=== PATIENT | female | born 1950 | race Two or more races ===

== ENCOUNTER 2020-12-12 09:43 | Inpatient (IN) | payer OTHER ==
[2020-12-12] MEDS ORDERED: KETOROLAC TROMETHAMINE 15 MG/ML VIAL IVPUSH ONE (11:01)
[2020-12-12] MEDS ORDERED: KETOROLAC TROMETHAMINE 15 MG/ML VIAL ONE (11:14)
[2020-12-12 12:48] LABS: BASO % 0.6 % (0-2.0); EOS % 1.1 % (0-4.5); HEMATOCRIT 38.2 % (32.4-45.2); HEMOGLOBIN 12.9 GM/dL (10.7-15.3); LYMPH % 16.6 % (8-40); MCH 27.3 pg (25.7-33.7); MCHC 33.8 g/dl (32.0-36.0); MEAN CELL VOLUME 80.8 fl (80-96); MEAN PLT VOLUME 8.5 fl (7.5-11.1); MONO % 5.8 % (3.8-10.2); NEUT % 75.9 % (42.8-82.8); PLATELET COUNT 255 10^3/uL (134-434); RBC 4.72 M/mm3 (3.60-5.2); RDW 14.7 % (11.6-15.6); WHITE BLOOD COUNT 9.6 K/mm3 (4.0-10.0)
[2020-12-12 12:56] LABS: INR 0.95 (0.83-1.09); PROTHROMBIN TIME (PATIENT) 11.5 SEC (9.7-13.0)
[2020-12-12 12:58] LABS: ACTIVATED PTT 31.2 SECONDS (25.2-36.5)
[2020-12-12 13:14] LABS: CALCIUM 9.7 mg/dL (8.5-10.1)
[2020-12-12 13:15] LABS: ALBUMIN 3.9 g/dl (3.4-5.0)
[2020-12-12 13:18] LABS: CREATININE 1.3 mg/dL (0.55-1.3)
[2020-12-12 13:19] LABS: BILIRUBIN,TOTAL 0.4 mg/dL (0.2-1)
[2020-12-12 13:20] LABS: TOT PROT 7.8 g/dl (6.4-8.2)
[2020-12-12] MEDS ORDERED: SODIUM CHLORIDE 0.9% 500 ML INFUS.BAG IV ONE (13:28)
[2020-12-12] MEDS ORDERED: traMADol HCL 50 MG TABLET PO ONE (15:49)
[2020-12-12] MEDS ORDERED: traMADol HCL 50 MG TABLET ONE (16:24)
[2020-12-12] MEDS ORDERED: IBUPROFEN 400 MG TABLET (FP) PO PRN (16:52)
[2020-12-12] MEDS ORDERED: MORPHINE SULFATE 2 MG/ML VIAL IVPUSH PRN (16:52)
[2020-12-12] MEDS ORDERED: LIDOCAINE 5% TOPICAL PATCH ONE (17:27)
[2020-12-12] MEDS: CYCLOBENZAPRINE HCL 5 MG TABLET PO SCH (17:38)
[2020-12-12] MEDS: LIDOCAINE 5% TOPICAL PATCH TP SCH (17:39)
[2020-12-12] MEDS ORDERED: ROSUVASTATIN CA 40 MG TABLET PO SCH (22:00)
[2020-12-12] MEDS: traMADol HCL 50 MG TABLET PO PRN (23:18)
[2020-12-12] MEDS: ROSUVASTATIN CA 20 MG TABLET (FP) PO SCH (23:18)
[2020-12-12] MEDS: LIDOCAINE PATCH REMOVAL MC SCH (23:18)
[2020-12-12] MEDS: INSULIN SLIDING SCALE (NOVOLOG) 1 VIAL SQ SCH (23:23)
[2020-12-13 01:56] VITALS: BMI 30.2
[2020-12-13] MEDS: INSULIN SLIDING SCALE (NOVOLOG) 1 VIAL SQ SCH ×4 (06:05→21:40)
[2020-12-13 07:49] LABS: HEMATOCRIT 35.9 % (32.4-45.2); MCH 27.1 pg (25.7-33.7); MCHC 33.4 g/dl (32.0-36.0); MEAN CELL VOLUME 81.2 fl (80-96); MEAN PLT VOLUME 8.7 fl (7.5-11.1); PLATELET COUNT 274 10^3/uL (134-434); RBC 4.41 M/mm3 (3.60-5.2); RDW 14.7 % (11.6-15.6); WHITE BLOOD COUNT 7.8 K/mm3 (4.0-10.0)
[2020-12-13 08:22] LABS: ALBUMIN 3.2 g/dl (3.4-5.0); CALCIUM 9.5 mg/dL (8.5-10.1)
[2020-12-13 08:23] LABS: BLOOD UREA NITROGEN 26.7 mg/dL (7-18)
[2020-12-13 08:26] LABS: CREATININE 1.5 mg/dL (0.55-1.3); PHOSPHOROUS 3.6 mg/dL (2.5-4.9)
[2020-12-13 08:27] LABS: BILIRUBIN,TOTAL 0.3 mg/dL (0.2-1); TOT PROT 6.8 g/dl (6.4-8.2)
[2020-12-13] MEDS ORDERED: PT OWN MED DRAWER 7, Y5N ONE (09:25)
[2020-12-13] MEDS: LIDOCAINE 5% TOPICAL PATCH TP SCH (09:38)
[2020-12-13] MEDS: DOCUSATE SODIUM 100 MG CAPSULE (FP) PO SCH (09:38)
[2020-12-13] MEDS: ASPIRIN 81 MG CHEWABLE TABLETS PO SCH (09:38)
[2020-12-13] MEDS: traMADol HCL 50 MG TABLET PO PRN ×2 (09:38→23:00)
[2020-12-13] MEDS: CYCLOBENZAPRINE HCL 5 MG TABLET PO SCH (09:39)
[2020-12-13] MEDS ORDERED: ENOXAPARIN NA (PORCINE) 40 MG/0.4 ML DISP.SYRIN SQ SCH (10:00)
[2020-12-13] MEDS ORDERED: LOSARTAN POTASSIUM 50 MG TABLET PO SCH (10:00)
[2020-12-13] MEDS: VERAPAMIL HCL 180 MG E.R. TABLET PO SCH (10:39)
[2020-12-13] MEDS ORDERED: SODIUM CHLORIDE 1,000 ML IV SCH (14:15)
[2020-12-13] MEDS: ACETAMINOPHEN 325 MG TABLET (FP) PO PRN (16:24)
[2020-12-13] MEDS: LIDOCAINE PATCH REMOVAL MC SCH (21:36)
[2020-12-13] MEDS: ROSUVASTATIN CA 20 MG TABLET (FP) PO SCH (21:36)
[2020-12-14] MEDS: traMADol HCL 50 MG TABLET PO PRN (05:55)
[2020-12-14] MEDS: INSULIN SLIDING SCALE (NOVOLOG) 1 VIAL SQ SCH ×4 (06:16→22:19)
[2020-12-14] MEDS: ACETAMINOPHEN 325 MG TABLET (FP) PO PRN ×2 (09:04→18:35)
[2020-12-14 09:07] LABS: HEMATOCRIT 35.3 % (32.4-45.2); HEMOGLOBIN 11.8 GM/dL (10.7-15.3); MCH 27.5 pg (25.7-33.7); MCHC 33.5 g/dl (32.0-36.0); MEAN PLT VOLUME 8.3 fl (7.5-11.1); PLATELET COUNT 240 10^3/uL (134-434); RBC 4.31 M/mm3 (3.60-5.2); RDW 14.6 % (11.6-15.6); WHITE BLOOD COUNT 7.6 K/mm3 (4.0-10.0)
[2020-12-14 09:24] LABS: BLOOD UREA NITROGEN 24.5 mg/dL (7-18); CALCIUM 9.1 mg/dL (8.5-10.1)
[2020-12-14 09:25] LABS: MAGNESIUM 2.1 mg/dL (1.8-2.4)
[2020-12-14 09:28] LABS: CREATININE 1.5 mg/dL (0.55-1.3); PHOSPHOROUS 3.2 mg/dL (2.5-4.9)
[2020-12-14 09:29] LABS: BILIRUBIN,TOTAL 0.3 mg/dL (0.2-1); TOT PROT 6.3 g/dl (6.4-8.2)
[2020-12-14] MEDS: amLODIPine BESYLATE 5 MG TABLET (FP) PO SCH (09:46)
[2020-12-14] MEDS ORDERED: PT OWN MED DRAWER 7, Y5N ONE (09:46)
[2020-12-14] MEDS: LIDOCAINE 5% TOPICAL PATCH TP SCH (09:47)
[2020-12-14] MEDS: VERAPAMIL HCL 180 MG E.R. TABLET PO SCH (09:47)
[2020-12-14] MEDS: DOCUSATE SODIUM 100 MG CAPSULE (FP) PO SCH (09:47)
[2020-12-14] MEDS: CYCLOBENZAPRINE HCL 5 MG TABLET PO SCH (09:47)
[2020-12-14] MEDS: ASPIRIN 81 MG CHEWABLE TABLETS PO SCH (09:47)
[2020-12-14] MEDS ORDERED: oxyCODONE HCL 5 MG TABLET PO ONE ×2 (10:07→19:22)
[2020-12-14 18:19] LABS: CREATININE 1.4 mg/dL (0.55-1.3)
[2020-12-14] MEDS: ROSUVASTATIN CA 20 MG TABLET (FP) PO SCH (22:19)
[2020-12-14] MEDS: LIDOCAINE PATCH REMOVAL MC SCH (22:20)
[2020-12-14] MEDS: oxyCODONE HCL 5 MG TABLET PO PRN (22:25)
[2020-12-15] MEDS: ACETAMINOPHEN 325 MG TABLET (FP) PO PRN (04:11)
[2020-12-15] MEDS: INSULIN SLIDING SCALE (NOVOLOG) 1 VIAL SQ SCH ×4 (06:40→21:26)
[2020-12-15 09:46] LABS: HEMOGLOBIN 12.1 GM/dL (10.7-15.3); MCHC 32.7 g/dl (32.0-36.0); MEAN CELL VOLUME 82.5 fl (80-96); MEAN PLT VOLUME 8.8 fl (7.5-11.1); PLATELET COUNT 264 10^3/uL (134-434); RBC 4.48 M/mm3 (3.60-5.2); RDW 14.6 % (11.6-15.6); WHITE BLOOD COUNT 8.5 K/mm3 (4.0-10.0)
[2020-12-15 10:14] LABS: ALBUMIN 3.2 g/dl (3.4-5.0); BLOOD UREA NITROGEN 30.8 mg/dL (7-18); CALCIUM 9.4 mg/dL (8.5-10.1)
[2020-12-15 10:15] LABS: MAGNESIUM 2.2 mg/dL (1.8-2.4)
[2020-12-15 10:17] LABS: CREATININE 1.5 mg/dL (0.55-1.3)
[2020-12-15 10:18] LABS: PHOSPHOROUS 3.4 mg/dL (2.5-4.9)
[2020-12-15 10:19] LABS: BILIRUBIN,TOTAL 0.3 mg/dL (0.2-1); TOT PROT 6.5 g/dl (6.4-8.2)
[2020-12-15] MEDS: CYCLOBENZAPRINE HCL 5 MG TABLET PO SCH (10:28)
[2020-12-15] MEDS: LIDOCAINE 5% TOPICAL PATCH TP SCH (10:28)
[2020-12-15] MEDS: amLODIPine BESYLATE 5 MG TABLET (FP) PO SCH (10:28)
[2020-12-15] MEDS: DOCUSATE SODIUM 100 MG CAPSULE (FP) PO SCH (10:28)
[2020-12-15] MEDS: ASPIRIN 81 MG CHEWABLE TABLETS PO SCH (10:29)
[2020-12-15] MEDS ORDERED: PT OWN MED DRAWER 7, Y5N ONE (10:39)
[2020-12-15] MEDS: oxyCODONE HCL 5 MG TABLET PO PRN ×2 (10:41→22:50)
[2020-12-15] MEDS: VERAPAMIL HCL 180 MG E.R. TABLET PO SCH (10:42)
[2020-12-15] MEDS ORDERED: SODIUM CHLORIDE 0.45% 1,000 ML IV SCH (17:30)
[2020-12-15] MEDS: ROSUVASTATIN CA 20 MG TABLET (FP) PO SCH (21:25)
[2020-12-15] MEDS: LIDOCAINE PATCH REMOVAL MC SCH (21:25)
[2020-12-16] MEDS: INSULIN SLIDING SCALE (NOVOLOG) 1 VIAL SQ SCH ×4 (06:14→21:14)
[2020-12-16 09:54] LABS: CALCIUM 8.9 mg/dL (8.5-10.1)
[2020-12-16 09:55] LABS: ALBUMIN 3.2 g/dl (3.4-5.0); BLOOD UREA NITROGEN 27.2 mg/dL (7-18)
[2020-12-16 09:58] LABS: CREATININE 1.5 mg/dL (0.55-1.3)
[2020-12-16 09:59] LABS: BILIRUBIN,TOTAL 0.3 mg/dL (0.2-1); TOT PROT 6.6 g/dl (6.4-8.2)
[2020-12-16] MEDS ORDERED: SENNOSIDES 8.6MG TABLET (FP) PO SCH (10:00)
[2020-12-16] MEDS ORDERED: PT OWN MED DRAWER 7, Y5N ONE ×2 (10:16→20:51)
[2020-12-16] MEDS: LIDOCAINE 5% TOPICAL PATCH TP SCH (10:19)
[2020-12-16] MEDS: oxyCODONE HCL 5 MG TABLET PO PRN (10:20)
[2020-12-16] MEDS: CYCLOBENZAPRINE HCL 5 MG TABLET PO SCH (10:20)
[2020-12-16] MEDS: ASPIRIN 81 MG CHEWABLE TABLETS PO SCH (10:20)
[2020-12-16] MEDS: DOCUSATE SODIUM 100 MG CAPSULE (FP) PO SCH (10:22)
[2020-12-16] MEDS: POLYETHYLENE GLYCOL 3350 119 GM BTL PO SCH (10:22)
[2020-12-16] MEDS: VERAPAMIL HCL 240 MG E.R. TABLET PO SCH (10:22)
[2020-12-16] MEDS: ELECTROLYTE-148 SOLN 1,000 ML IV SCH ×2 (11:02→23:15)
[2020-12-16] MEDS ORDERED: GLYCERIN 1 RECTAL SUPPOSITORY, ADULT RC ONE (12:30)
[2020-12-16] MEDS ORDERED: INSULIN (NOVOLOG) ASPART 100 UNITS/ML 10ML VIAL ONE (17:38)
[2020-12-16] MEDS: ENOXAPARIN NA (PORCINE) 30 MG/0.3 ML DISP.SYRIN SQ SCH (17:39)
[2020-12-16] MEDS: ROSUVASTATIN CA 20 MG TABLET (FP) PO SCH (21:13)
[2020-12-16] MEDS: LIDOCAINE PATCH REMOVAL MC SCH (21:14)
[2020-12-17] MEDS: INSULIN SLIDING SCALE (NOVOLOG) 1 VIAL SQ SCH ×4 (06:17→21:24)
[2020-12-17] MEDS: ACETAMINOPHEN 325 MG TABLET (FP) PO PRN ×2 (08:33→20:19)
[2020-12-17] MEDS ORDERED: PT OWN MED DRAWER 7, Y5N ONE (09:21)
[2020-12-17] MEDS: DOCUSATE SODIUM 100 MG CAPSULE (FP) PO SCH (09:23)
[2020-12-17] MEDS: VERAPAMIL HCL 240 MG E.R. TABLET PO SCH (09:23)
[2020-12-17] MEDS: LIDOCAINE 5% TOPICAL PATCH TP SCH (09:23)
[2020-12-17] MEDS: ASPIRIN 81 MG CHEWABLE TABLETS PO SCH (09:24)
[2020-12-17] MEDS: ENOXAPARIN NA (PORCINE) 30 MG/0.3 ML DISP.SYRIN SQ SCH (09:25)
[2020-12-17] MEDS: CYCLOBENZAPRINE HCL 5 MG TABLET PO SCH (09:25)
[2020-12-17 09:34] LABS: BLOOD UREA NITROGEN 29.3 mg/dL (7-18); CALCIUM 8.9 mg/dL (8.5-10.1)
[2020-12-17 09:35] LABS: ALBUMIN 3.1 g/dl (3.4-5.0)
[2020-12-17 09:37] LABS: CREATININE 1.5 mg/dL (0.55-1.3)
[2020-12-17 09:39] LABS: BILIRUBIN,TOTAL 0.6 mg/dL (0.2-1); TOT PROT 6.8 g/dl (6.4-8.2)
[2020-12-17] MEDS: POLYETHYLENE GLYCOL 3350 119 GM BTL PO SCH (10:48)
[2020-12-17] MEDS: ELECTROLYTE-148 SOLN 1,000 ML IV SCH ×2 (11:35→23:56)
[2020-12-17 13:06] LABS: URIC ACID 6.1 mg/dL (2.6-7.2)
[2020-12-17] MEDS: ROSUVASTATIN CA 20 MG TABLET (FP) PO SCH (21:24)
[2020-12-17] MEDS: LIDOCAINE PATCH REMOVAL MC SCH (21:25)
[2020-12-18] MEDS: ACETAMINOPHEN 325 MG TABLET (FP) PO PRN ×2 (02:55→09:18)
[2020-12-18] MEDS: INSULIN SLIDING SCALE (NOVOLOG) 1 VIAL SQ SCH ×3 (06:58→17:07)
[2020-12-18 08:46] LABS: HEMATOCRIT 37.1 % (32.4-45.2); HEMOGLOBIN 12.1 GM/dL (10.7-15.3); MCH 26.9 pg (25.7-33.7); MCHC 32.7 g/dl (32.0-36.0); MEAN CELL VOLUME 82.3 fl (80-96); MEAN PLT VOLUME 8.6 fl (7.5-11.1); PLATELET COUNT 273 10^3/uL (134-434); RBC 4.51 M/mm3 (3.60-5.2); RDW 14.7 % (11.6-15.6); WHITE BLOOD COUNT 8.1 K/mm3 (4.0-10.0)
[2020-12-18] MEDS ORDERED: PT OWN MED DRAWER 7, Y5N ONE ×2 (09:13→15:58)
[2020-12-18] MEDS: LIDOCAINE 5% TOPICAL PATCH TP SCH (09:19)
[2020-12-18] MEDS: CYCLOBENZAPRINE HCL 5 MG TABLET PO SCH (09:20)
[2020-12-18] MEDS: VERAPAMIL HCL 240 MG E.R. TABLET PO SCH (09:20)
[2020-12-18] MEDS: DOCUSATE SODIUM 100 MG CAPSULE (FP) PO SCH (09:20)
[2020-12-18] MEDS: ASPIRIN 81 MG CHEWABLE TABLETS PO SCH (09:20)
[2020-12-18] MEDS: ENOXAPARIN NA (PORCINE) 30 MG/0.3 ML DISP.SYRIN SQ SCH (09:20)
[2020-12-18] MEDS: POLYETHYLENE GLYCOL 3350 119 GM BTL PO SCH (09:21)
[2020-12-18 09:33] LABS: CALCIUM 8.6 mg/dL (8.5-10.1)
[2020-12-18 09:34] LABS: BLOOD UREA NITROGEN 24.9 mg/dL (7-18); MAGNESIUM 2.5 mg/dL (1.8-2.4)
[2020-12-18 09:37] LABS: CREATININE 1.3 mg/dL (0.55-1.3); PHOSPHOROUS 2.8 mg/dL (2.5-4.9)
[2020-12-18 09:38] LABS: BILIRUBIN,TOTAL 0.5 mg/dL (0.2-1); TOT PROT 6.6 g/dl (6.4-8.2)
[2020-12-18] MEDS ORDERED: INSULIN (NOVOLOG) ASPART 100 UNITS/ML 10ML VIAL ONE (11:01)
[2020-12-18] MEDS: ELECTROLYTE-148 SOLN 1,000 ML IV SCH (11:05)
[2020-12-18 14:07] VITALS: BP 145/68; PULSE 76; TEMP 97.4
[2020-12-18] MEDS ORDERED: COLCHICINE 0.6 MG TAB PO ONE ×2 (15:56→17:33)
[2020-12-18] MEDS ORDERED: COLCHICINE 0.6 MG CAP PO ONE (16:00)
== END 2020-12-18 20:18 | DRG 184 ==
LOC: JER 09:43 → JERBED 15:48 → J6S 23:06 → OBSVTOIN 12-16 12:06
PROVIDERS: ATTEND Internal Medicine
DX: S22.42XA Multiple fractures of ribs, left side, initial encounter for closed fracture (principal); N17.9 Acute kidney failure, unspecified; J90 Pleural effusion, not elsewhere classified; M10.9 Gout, unspecified; E11.9 Type 2 diabetes mellitus without complications; E78.5 Hyperlipidemia, unspecified; I10 Essential (primary) hypertension; Z79.84 Long term (current) use of oral hypoglycemic drugs; W06.XXXA Fall from bed, initial encounter; Y93.89 Activity, other specified; Y99.8 Other external cause status; Y92.003 Bedroom of unspecified non-institutional (private) residence as the place of occurrence of the external cause
CPT/HCPCS: 36415; 71045-TC-FY; 71275-TC; 73610-TC-RT-FY; 73630-TC-RT-FY; 80053; 82306; 82565; 82962; 83735; 84100; 84550; 85025; 85027; 85610; 85730; 86850; 86900; 86901; 93005; 93010; 94010; 97116-GP; 97162-GP; 99285-25; C9803; G0378; Q9967; U0003; U0005